=== PATIENT | male | born 1985 | race Caucasian/White ===

== ENCOUNTER 2021-09-18 11:30 | Emergency (ER) | payer OTHER ==
[2021-09-18 11:39] VITALS: BMI 34.9
[2021-09-18] MEDS ORDERED: METOCLOPRAMIDE HCL INJECTION 10 MG/2 ML VIAL IVPUSH ONE (12:05)
[2021-09-18] MEDS ORDERED: KETOROLAC TROMETHAMINE 15 MG/ML VIAL IVPUSH ONE (12:05)
[2021-09-18] MEDS ORDERED: KETOROLAC TROMETHAMINE 15 MG/ML VIAL ONE (12:51)
[2021-09-18] MEDS ORDERED: METOCLOPRAMIDE HCL INJECTION 10 MG/2 ML VIAL ONE (12:51)
[2021-09-18 13:27] LABS: BASO % 1.3 % (0-2.0); EOS % 1.8 % (0-4.5); HEMATOCRIT 41.1 % (35.4-49); HEMOGLOBIN 14.3 GM/dL (11.7-16.9); LYMPH % 37.3 % (8-40); MCH 30.9 pg (25.7-33.7); MCHC 34.8 g/dl (32.0-35.9); MEAN CELL VOLUME 88.6 fl (80-96); MEAN PLT VOLUME 8.2 fl (7.5-11.1); MONO % 4.4 % (3.8-10.2); NEUT % 55.2 % (42.8-82.8); PLATELET COUNT 265 10^3/uL (134-434); RBC 4.64 M/mm3 (4.00-5.60); RDW 12.8 % (11.9-15.9); WHITE BLOOD COUNT 8.1 K/mm3 (4.0-10.0)
[2021-09-18 13:49] LABS: BLOOD UREA NITROGEN 18.1 mg/dL (7-18); CALCIUM 9.3 mg/dL (8.5-10.1)
[2021-09-18 13:50] LABS: ALBUMIN 4.1 g/dl (3.4-5.0)
[2021-09-18 13:53] LABS: CREATININE 1.2 mg/dL (0.55-1.3)
[2021-09-18 13:55] LABS: BILIRUBIN,TOTAL 0.7 mg/dL (0.2-1)
[2021-09-18 16:29] VITALS: BP 122/74; PULSE 78; TEMP 98
[2021-09-19 10:13] LABS: SARS-CoV-2 NAA Not Detected (Not Detected)
== END 2021-09-18 16:29 | disposition home or self-care (01) ==
LOC: JER 11:30
DX: R51.9 Headache, unspecified (principal)
CPT/HCPCS: 36415; 70450-TC; 80053; 85025; 99285-25; C9803-CS; U0003; U0005

== ENCOUNTER 2022-08-01 00:33 | Emergency (ER) | payer OTHER ==
[2022-08-01 00:42] VITALS: BP 98/68; PULSE 64; RESP 18; TEMP 97.6; BMI 34.2
[2022-08-01] MEDS ORDERED: SODIUM CHLORIDE 0.9% 500 ML INFUS.BAG IV ONE (01:25)
[2022-08-01] MEDS ORDERED: MECLIZINE HCL 25 MG TABLET (FP) PO ONE (01:26)
[2022-08-01] MEDS ORDERED: METOCLOPRAMIDE HCL INJECTION 10 MG/2 ML VIAL IVPB ONE (01:28)
[2022-08-01] MEDS ORDERED: MECLIZINE HCL 25 MG TABLET (FP) ONE (01:35)
[2022-08-01] MEDS ORDERED: METOCLOPRAMIDE HCL INJECTION 10 MG/2 ML VIAL ONE (01:43)
[2022-08-01 02:04] LABS: BASO % 1.1 % (0-2.0); EOS % 1.6 % (0-4.5); HEMATOCRIT 37.2 % (35.4-49); HEMOGLOBIN 13.2 GM/dL (11.7-16.9); MCHC 35.6 g/dl (32.0-35.9); MEAN CELL VOLUME 87.2 fl (80-96); MEAN PLT VOLUME 7.8 fl (7.5-11.1); MONO % 3.2 % (3.8-10.2); NEUT % 45.1 % (42.8-82.8); PLATELET COUNT 306 10^3/uL (134-434); RBC 4.26 M/mm3 (4.00-5.60); RDW 12.8 % (11.9-15.9); WHITE BLOOD COUNT 9.9 K/mm3 (4.0-10.0)
[2022-08-01 02:26] LABS: ALBUMIN 3.6 g/dl (3.4-5.0); BLOOD UREA NITROGEN 14.4 mg/dL (7-18); MAGNESIUM 1.7 mg/dL (1.8-2.4)
[2022-08-01 02:29] LABS: PHOSPHOROUS 4.9 mg/dL (2.5-4.9)
[2022-08-01 02:31] LABS: BILIRUBIN,TOTAL 0.2 mg/dL (0.2-1); TOT PROT 7.3 g/dl (6.4-8.2)
[2022-08-01] MEDS ORDERED: AMOXICILLIN 500 MG CAPSULE (FP) PO ONE (04:04)
[2022-08-01] MEDS ORDERED: AMOXICILLIN 250 MG CAPSULE ONE (04:12)
== END 2022-08-01 04:15 | disposition home or self-care (01) ==
LOC: JER 00:33
PROC: 3E033GC Introduction of Other Therapeutic Substance into Peripheral Vein, Percutaneous Approach (ICD-10-PCS; principal; 2022-08-01)
DX: R19.7 Diarrhea, unspecified (principal); F11.20 Opioid dependence, uncomplicated; R55 Syncope and collapse
CPT/HCPCS: 0241U-QW; 36415; 70450-TC; 80053; 83735; 84100; 84484; 85025; 87651; 93005; 93010; 99284-25

== ENCOUNTER 2024-12-16 23:32 | Emergency (ER) | payer SELFPAY ==
[2024-12-16 23:41] VITALS: BP 135/82; PULSE 86; RESP 24; TEMP 98.8; BMI 31.6
== END 2024-12-17 00:39 | disposition home or self-care (01) ==
LOC: JER 23:32
DX: R06.02 Shortness of breath (principal); F11.10 Opioid abuse, uncomplicated; Z72.0 Tobacco use
CPT/HCPCS: 71046-TC-FY; 93005; 93010; 99284-25